=== PATIENT | female | born 1980 | race Caucasian/White ===

== ENCOUNTER 2016-12-04 06:53 | Emergency (ER) | payer OTHER ==
--- NOTE | 2016-12-04 07:20 | ED GENERAL ADULT ---
History of Present Illness General Chief Complaint: Altered Mental Status Stated Complaint: BIBA ETOH AMS Source: patient Exam Limitations: clinical condition, poor historian, intoxication, physical impairment Vital Signs & Intake/Output Vital Signs & Intake/Output Vital Signs Date Time Temp Pulse Resp B/P Pulse O2 O2 Flow FiO2 Ox Delivery Rate 12/04 1210 98.4 79 18 105/74 100 Room Air 12/04 1123 78 16 110/74 97 Room Air 12/04 0924 78 18 124/74 100 Room Air 12/04 0737 98.6 79 18 120/82 99 Room Air 12/04 0710 98 Room Air 12/04 0653 95.8 77 14 120/78 98 Room Air Allergies Coded Allergies: UNOBTAINABLE (12/04/16) Triage Note: 36YO FEMALE TO RM 3 VIA AMB SP FOUND BY BOYFRIEND W/DECREASED LOC AND VOMITING THIS AM. PT KEEPING EYES CLOSED,GRINDING TEETH AND CLINCHING JAW, UNABLE TO FOLLOW SIMPLE COMMANDS, NO REACTION TO STERNAL RUB. BOYFRIEND OF 1 MONTH STATES "WE WERE DRINKING VODKA LAST NIGHT" HE DENIES ANY KNOWN DRUG USE. Triage Nurses Notes Reviewed? yes Onset: Abrupt Duration: unknown duration Timing: unknown : No Patient currently breastfeeds: No HPI: 12/04/16 7:50 AM 36-year-old female presents to the emergency department for altered mental status. The patient was found by the boyfriend to be unresponsive this morning. She responds to painful stimuli, pupils are reactive. The onset of the symptoms were abrupt, the duration was just today, the severity was significant; as her symptoms required her to come to the emergency department for care. Past History Travel History Traveled to [place] past 21 day No Medical History Any Pertinent Medical History? see below for history Surgical History Surgical History: non-contributory Psychosocial History What is your primary language Maori Tobacco Use: UN Family History Hx Contributory? No Review of Systems Review of Systems Constitutional: Reports: no symptoms. EENTM: Reports: no symptoms. Respiratory: Reports: no symptoms. Cardiovascular: Reports: no symptoms. GI: Reports: no symptoms. Genitourinary: Reports: no symptoms. Musculoskeletal: Reports: no symptoms. Skin: Reports: no symptoms. Neurological/Psychological: Reports: no symptoms. Hematologic/Endocrine: Reports: no symptoms. Physical Exam Physical Exam General Appearance: alert, awake, anxious, mild distress Head: atraumatic, normal appearance Eyes: Bilateral: normal appearance, PERRL, EOMI. Ears, Nose, Throat: normal pharynx, normal ENT inspection, hearing grossly normal Neck: normal inspection, supple Respiratory: normal breath sounds, chest non-tender Cardiovascular: regular rate/rhythm Peripheral Pulses: 4+ radial (R), 4+ radial (L) Gastrointestinal: soft, non-tender Back: normal range of motion Extremities: normal inspection, normal capillary refill, normal range of motion Neurologic/Psych: initially responded only to pain Skin: intact, normal color, warm/dry Core Measures ACS in differential dx? No CVA/TIA Diagnosis: No Severe Sepsis Present: No Septic Shock Present: No Progress Differential Diagnoses I considered the following diagnoses in my evaluation of the patient: [ Intracranial bleed, drug overdose, alcohol intoxication, polysubstance abuse] Plan of Care: Orders Procedure Date/time Status EKG 12/05 751 Active URINE DRUGS OF ABUSE 12/04 699 Complete URINE 12/04 699 Complete HUMAN BETA HCG SCREEN 12/04 699 Complete ETHANOL 12/04 699 Complete COMPREHENSIVE METABOLIC PANEL 12/04 699 Complete CBC WITHOUT DIFFERENTIAL 12/04 699 Complete Current Medications Sig/Jose Guadalupe Start time Last Medication Dose Stop Time Status Admin Potassium Chloride 20 MEQ Q1H 12/04 0800 CAN 12/05 0901 Laboratory Tests 12/04/16 0752: Methadone Screen Cancelled, Barbiturate Screen Cancelled, Ur Phencyclidine Scrn Cancelled, Amphetamines Screen Cancelled, U Benzodiazepines Scrn Cancelled, Urine Cocaine Screen Cancelled, Urine Cannabis Screen Cancelled 12/04/16 0730: Urine Opiates Screen < 100.00, Methadone Screen < 40, Barbiturate Screen < 60, Ur Phencyclidine Scrn < 6.00, Amphetamines Screen < 100, U Benzodiazepines Scrn < 85, Urine Cocaine Screen > 1000 H, Urine Cannabis Screen < 5.00, Urine Test NEGATIVE 12/04/16 0650: Anion Gap 17 H, Estimated GFR > 60, BUN/Creatinine Ratio 13.3, Glucose 109 H, Calcium 8.9, Total Bilirubin 0.5, AST 75 H, ALT 61 H, Alkaline Phosphatase 133 H, Total Protein 8.5 H, Albumin 4.0, Globulin 4.5 H, Albumin/Globulin Ratio 0.9 L, Total Beta HCG NEGATIVE, CBC w Diff NO MAN DIFF REQ, RBC 4.43, MCV 86.7, MCH 28.7, RDW 13.6, MPV 10.4, Gran % 56.1, Lymphocytes % 30.5, Monocytes % 11.4 H, Eosinophils % 1.3, Basophils % 0.7, Absolute Granulocytes 2.0, Absolute Lymphocytes 1.1 L, Absolute Monocytes 0.4, Absolute Eosinophils 0, Absolute Basophils 0, PUBS MCHC 33.1, Serum Alcohol 175.0 Initial ED EKG: NSR Departure Departure Disposition: HOME OR SELF CARE Condition: Stable Clinical Impression Primary Impression: Altered mental status Secondary Impressions: Alcohol intoxication, Cocaine abuse Referrals: UNKNOWN (PCP/Family) Departure Forms: Customer Survey General Discharge Information Comments 12/04/16 11:36 am The patient is awake alert oriented 3. She says she simply drank too much last night she denies having a problem with alcohol. She did throw up and had the head spins from drinking so much. I informed her that her potassium was low. She says she doesn't drink every day. She denies headache or abdominal pain or any complaints at this time and wants to go. She did receive 20 mEq of IV potassium. She was told to drink Gatorade and citrus fruit juice for the next few days and to follow-up with her doctor, or with [facility] on Wednesday or return to the emergency department for repeat potassium level. The patient understood the instructions. No vomiting in the emergency department. Critical Care Note Critical Care Note Critical Care Time: non-applicable
[2016-12-04 07:41] LABS: ABSOLUTE BASOPHIL COUNT 0 /CUMM (0.0-0.2); ABSOLUTE EOSINOPHIL COUNT 0 /CUMM (0.0-0.7); ABSOLUTE LYMPH COUNT 1.1 /CUMM (1.2-3.4); ABSOLUTE MONOCYTE COUNT 0.4 /CUMM (0.10-0.60); BASOPHIL % 0.7 % (0.0-2.0); EOSINOPHIL % 1.3 % (0-5); GRANULOCYTE % 56.1 % (42.2-75.2); HEMATOCRIT 38.4 % (37-47); MEAN CORPUSCULAR HGB 28.7 PG (27.0-31.0); MEAN CORPUSCULAR HGB CONC 33.1 G/DL (33.0-37.0); MEAN CORPUSCULAR VOLUME 86.7 FL (81.0-99.0); MEAN PLATELET VOLUME 10.4 FL (7.4-10.4); RBC DISTRIBUTION WIDTH 13.6 % (11.5-14.5); RED BLOOD CELL CT 4.43 /CUMM (4.20-5.40)
[2016-12-04 08:00] LABS: WHITE BLOOD CELL COUNT 3.6 /CUMM (4.8-10.8)
[2016-12-04 12:10] VITALS: BP 105/74
== END 2016-12-04 12:11 ==
LOC: ERH 06:53
PROVIDERS: Emergency Medicine
DX: R41.82 Altered mental status, unspecified (principal); F10.129 Alcohol abuse with intoxication, unspecified; F14.10 Cocaine abuse, uncomplicated
CPT/HCPCS: 80307; 81025; 93005; 93010; 96361; 96374; G0480